=== PATIENT | male | born 1935 | race Caucasian/White ===

== ENCOUNTER 2023-10-11 16:21 | Emergency (ER) | payer OTHER, SELFPAY ==
[2023-10-11 16:49] VITALS: BP 136/76
[2023-10-11 17:50] VITALS: BMI 25.8
--- NOTE | 2023-10-11 18:10 | ED.GENMED ---
History of Present Illness
General
Chief Complaint: Fall
Source: patient and family
Exam Limitations: none
Time Seen by Provider: 10/11/23 17:44
Nursing documentation reviewed up to this point in time: agreed with
Travel History
Have you had any contact with someone who has COVID-19?: No
Do you have any symptoms of coronavirus? Fever > 100 degrees, chills, cough, shortness of breath, sore throat, loss of taste or smell, muscle aches, or headache?: No
History of Present Illness
History of Present Illness:
Pleasant 88-year-old male that presents after a trip and fall that occurred 3 days ago. He tripped and fell on hitting his head. Patient was initially acting normally but son and [id number] state that he became more more disoriented.
Today he had difficulty with activities of daily living so they brought him into the hospital. They were concerned that his head injury was more severe than originally thought. Patient was at baseline mental status at time of H&P.
Past History
Past History
ED Past Medical History: Hypercholesterolemia and Other (Migraines)
ED Past Surgical History: Other (Ear surgery)
Social History
Tobacco: Non-smoker
Alcohol: None
Drug: None
Personal:
Living: alone
Review of Systems
Review of Systems
Allergies reviewed?: Yes
Other source history: family
All Other Systems: ROS reviewed and negative except as documented in HPI and ROS
Constitutional: Reports no symptoms
EENT: Reports no symptoms
Respiratory: Reports no symptoms
Cardiac: Reports no symptoms
ABD/GI: Reports no symptoms
: Reports no symptoms
Musculoskeletal: Reports no symptoms
Skin: Reports no symptoms
Neurological: Reports headache
Endocrine: Reports no symptoms
Hematologic/Lymphatic: Reports no symptoms
Psychiatric: Reports anxiety
Phy Exam
General Physical Exam
General Presentation: well appearing and no apparent distress
General Skin: warm and dry
General Habitus: normal
General Mental: alert
General Hydration: appears well hydrated
ENT Exam
ENT Exam: EOMI, pharynx normal, neck supple and normocephalic
Eye Exam
Eye Exam: PERRL, cornea clear and conjunctiva normal
Cardiovascular Exam
Cardiovascular Exam: regular rate/rhythm, no edema, no murmur and normal peripheral pulses
Pulmonary Exam
Pulmonary Exam: lungs clear, no respiratory distress, no rales, no crackles, no rhonchi, no stridor, no wheezing and no cough
Gastrointestinal Exam
Gastrointestinal Exam: normal bowel sounds, non tender, soft, no organomegaly, no pulsatile mass and non distended
Neurological Exam
Neurological Exam: alert, oriented x3, no motor deficits and speech normal
Musculoskeletal Exam
Musculoskeletal Exam: full ROM and no edema
Skin Exam
Skin Exam: warm/dry and other (Ecchymosis in a diagonal pattern on the right flank. No tenderness to palpation.)
Psychiatric Exam
Psychiatric Exam: normal mood/affect
Course
Orders/Labs/Results
Orders:
Orders
10/11/23 17:08
CT Head W/o Iv Contrast Urgent
Comment: s/p fall
Reason For Exam: head injury with change in mental status
Vital Signs
Initial and Last Documented VS:
Initial Vital Signs
Temp Pulse Resp BP Pulse Ox
98.2 F 75 18 136/76 97
10/11/23 16:49 10/11/23 16:49 10/11/23 16:49 10/11/23 16:49 10/11/23 16:49
Last Documented Vital Signs
Temp Pulse Resp BP Pulse Ox
98.2 F 75 18 136/76 97
10/11/23 16:49 10/11/23 16:49 10/11/23 16:49 10/11/23 16:49 10/11/23 16:49
*Radiology
Radiology exam reviewed: radiology read reviewed (IMPRESSION: No acute intracranial abnormality noted. Moderate atrophy. Stable Severe right nonacute sinusitis. Stable)
*Pulse Oximetry
Patient hypoxic: no
*Critical Care Note
Total Time (30-74mins, 75-104mins- exclusive of procedures): Not Applicable
ED Attending Note
-
Portions of this chart may have been created with voice recognition software.� Occasional wrong word or��sound alike� substitutions may have occurred due to the inherent limitations of voice recognition software.
Discharge Plan
Departure
Patient Disposition: Home (Routine Discharge)
Date of Disposition: 10/11/23
Time of Disposition: 19:44
Patient with high blood pressure during this ER visit?: Yes
Condition: Good
Discharge Problem:
Fall, Contusion, Head injury
Instructions: Head Injury in Adults (DC), Contusion (DC), Preventing falls in adults, BLOOD PRESSURE
Prescriptions:
No Action
latanoprost 0.005 % Drops
1 drp BOTH EYES HS
valproic acid 250 mg Capsule
250 mg PO BID
simvastatin 20 mg Tablet
20 mg PO HS
lisinopril 10 mg Tablet
10 mg PO DAILY
furosemide 20 mg Tablet
10 mg PO DAILY
amoxicillin-pot clavulanate 875-125 mg Tablet
1 tab PO Q12 5 Days Qty: 10 0RF
Referrals:
Chandler Avalos MD [Family Provider] -
Activity Restrictions/Additional Instructions:
It was a pleasure meeting you and taking part in your care. We hope for your continued healing and wellness.
Please read discharge instructions in their entirety. However, they are for general education and may not describe your exact diagnosis at discharge. Information on your ER visit and medical conditions were discussed with you along with appropriate
follow up information...
If indicated, please take your medications as instructed and indicated on discharge paperwork.
Please schedule a follow up appointment as directed. Call to schedule an appointment
Please return to the emergency department with ANY change in, persisting, or worsening of symptoms. If any of your symptoms do not improve, or persist, or become more severe within 6-12 hours, please return to the emergency department for further
care.
Please return to the emergency department if you develop a headache, neck pain/stiffness, fever greater than 100.4F, chest pain, shortness of breath, persistent nausea, vomiting, slurred speech, difficulty walking, numbness/tingling, weakness, signs
of infection or any other symptoms that are worrisome to you.
If you have any questions or concerns please do not hesitate to call the Hospital at or E-mail me directly at [email or web address]
Interventions
Interventions:
*Risk Screen - Suicide Last Done: 10/11/23 17:50
*General Assessment Last Done: 10/11/23 17:50
*Neglect/Abuse Screening Last Done: 10/11/23 17:50
ED- Fall Risk Assessment Last Done: 10/11/23 20:14
*ED COVID-19 Vaccine History Last Done: 10/11/23 16:49
*Nursing Disposition Last Done: 10/11/23 20:14
ED-Musculoskeletal Assessment Last Done: 10/11/23 17:50
ED- Neurological Assessment Last Done: 10/11/23 17:50
ED-Skin Assessment Last Done: 10/11/23 18:35
Discharge Date and Time
Discharge Date/Time: 10/11/23 20:15
== END 2023-10-11 20:15 | disposition home or self-care (01) ==
LOC: EMR 16:21
PROVIDERS: EMERGENCY PHYSICIAN Student in an Organized Health Care Education/Training Program; FAMILY PHYSICIAN Internal Medicine
DX: S09.90XA Unspecified injury of head, initial encounter (principal); S30.1XXA Contusion of abdominal wall, initial encounter; W01.0XXA Fall on same level from slipping, tripping and stumbling without subsequent striking against object, initial encounter; R03.0 Elevated blood-pressure reading, without diagnosis of hypertension
CPT/HCPCS: 99284; 70450

== ENCOUNTER 2023-12-29 13:54 | Emergency (ER) | payer OTHER, SELFPAY ==
[2023-12-29 14:03] VITALS: BP 142/117
--- NOTE | 2023-12-29 14:21 | ED.GENMED ---
History of Present Illness
General
Chief Complaint: Musculo-Skeletal Complaint
Source: patient and ambulance crew
Exam Limitations: none
Time Seen by Provider: 12/29/23 14:06
Nursing documentation reviewed up to this point in time: agreed with
Travel History
Have you had any contact with someone who has COVID-19?: No
Do you have any symptoms of coronavirus? Fever > 100 degrees, chills, cough, shortness of breath, sore throat, loss of taste or smell, muscle aches, or headache?: No
History of Present Illness
History of Present Illness:
88 yo male presents emergency department complaining of intermittent right flank pain since 11 AM. EMS noted he was in atrial fibrillation. He denies any history of it. He also had bilateral edema denying shortness of breath denying chest pain.
He lives alone. He states that he had severe pain, but not at this time.
Past History
Past History
ED Past Medical History: Hypercholesterolemia and Other (Migraines)
ED Past Surgical History: Other (Ear surgery)
Social History
Tobacco: Non-smoker
Alcohol: None
Drug: None
Personal:
Living: alone
Review of Systems
Review of Systems
Allergies reviewed?: Yes
All Other Systems: Not applicable
Constitutional: Reports no symptoms
EENT: Reports no symptoms
Respiratory: Reports no symptoms
Cardiac: Reports no symptoms
ABD/GI: Reports no symptoms
: Reports flank pain
Musculoskeletal: Reports no symptoms
Skin: Reports no symptoms
Neurological: Reports no symptoms
Endocrine: Reports no symptoms
Hematologic/Lymphatic: Reports no symptoms
Psychiatric: Reports no symptoms
Phy Exam
Physical Exam
Physical Exam:
Physical Exam
General: no apparent distress, not acutely ill
Neck: supple. no meningeal signs. normal posterior pharynx
Heart: s1/s2 regular rate and rhythm, no murmur. equal radial
pulses.
HEENT: Pupils equal round reactive to light, EOMI
Lungs: no acute respiratory distress. clear bilaterally
Abdomen: normal bowel sounds. not tender. no CVAT
Neuro: alert and oriented. no focal neurological deficits cranial nerves II through XII intact
Skin: no rash
Psychiatric: well kept. interactive and cooperative
Extremities: no edema. no calf tenderness. negative homans. good distal pulses
Course
Orders/Labs/Results
Orders:
Orders
12/29/23 13:59
EKG [Electrocardiogram (*1)] Urgent
Reason for Study: Atrial Fibrillation
12/29/23 14:00
EKG- Treatment ONCE
12/29/23 14:02
Complete Blood Count/With Diff Urgent
Comprehensive Metabolic Panel Urgent
12/29/23 14:19
CT Abd/pel Without Iv Or Oral Urgent
Comment:
Reason For Exam: right flank pain since 11am
12/29/23 14:20
IV Insert/Care/Rem.- Treatment PRN
12/29/23 15:30
Urinalysis Reflex To Culture Urgent
Date Specimen was Collected: 12/29/23
Time Specimen was Collected: 15:28
Urine Microscopic Reflex Cult Urgent
12/29/23 17:19
Lidocaine [Lidocaine 4% Patch] 1 patch TOPICAL STAT STA
Abnormal Lab Results
12/29/23 12/29/23
14:02 15:30
RBC 4.32 L 10^6/uL
(4.70-6.10)
MCH 32.2 H pg
(27.0-31.0)
Lymphocytes % 17.5 L %
(20.5-51.1)
Carbon Dioxide 32 H mmol/L
(22-30)
Glucose 105 H mg/dl
(70-99)
Total Protein 6.1 L g/dl
(6.3-8.2)
Leukocyte Esterase Rfl Trace A
(Negative)
12/29/23 14:02
12/29/23 14:02
Vital Signs
Initial and Last Documented VS:
Initial Vital Signs
Temp Pulse Resp BP Pulse Ox
98.5 F 66 16 142/117 99
12/29/23 14:03 12/29/23 14:03 12/29/23 14:03 12/29/23 14:03 12/29/23 14:03
Last Documented Vital Signs
Temp Pulse Resp BP Pulse Ox
98.5 F 62 16 148/71 98
12/29/23 14:03 12/29/23 17:15 12/29/23 17:15 12/29/23 17:00 12/29/23 17:15
MDM/Problems Addressed
Differential Diagnosis Includes:
Incarcerated hernia, kidney stone
MDM/Problems Addressed:
88-year-old male with right flank pain, unclear etiology. No inguinal tenderness. No signs of obstruction. Patient improved with Lidoderm patch and observation. Stable for discharge.
Chronic conditions affecting care: HTN
Acute Exacerbation and/or Progression of Chronic Illness: HTN
*Radiology
Radiology exam reviewed: radiology read reviewed (CT abdomen pelvis shows right inguinal hernia, no signs of obstruction)
*Pulse Oximetry
Patient hypoxic: no
*EKG
Interpreted by ED Provider?: Yes
EKG Intrepretation Date: 12/29/23
EKG Intrepretation Time: 14:02
Interpretation: abnormal
Comparison EKG: no changes
Heart Rate: 67
Rate: normal
Rhythm: sinus and sinus arrhythmia
[place]: normal axis
Interval: normal interval
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
Ischemia: no ischemia
*Clerk [employer]ations Interpretation
Rate: normal
Interpretation: normal
Heart Rate: 66
Rhythm: sinus
*Critical Care Note
Total Time (30-74mins, 75-104mins- exclusive of procedures): Not Applicable
Patient Management
Social determinants of health affecting care: Living situation
Escalation/DeEscalation of care consider admission/obs:
Admit not indicated
ED Attending Note
-
Portions of this chart may have been created with voice recognition software.� Occasional wrong word or��sound alike� substitutions may have occurred due to the inherent limitations of voice recognition software.
Discharge Plan
Departure
Patient Disposition: Home (Routine Discharge)
Date of Disposition: 12/29/23
Time of Disposition: 17:17
Patient with high blood pressure during this ER visit?: Yes
Condition: Good
Discharge Problem:
Acute right flank pain
Instructions: Flank Pain ED, BLOOD PRESSURE
Prescriptions:
No Action
latanoprost 0.005 % Drops
1 drp BOTH EYES HS
valproic acid 250 mg Capsule
250 mg PO BID
simvastatin 20 mg Tablet
20 mg PO HS
lisinopril 10 mg Tablet
10 mg PO DAILY
furosemide 20 mg Tablet
10 mg PO DAILY
amoxicillin-pot clavulanate 875-125 mg Tablet
1 tab PO Q12 5 Days Qty: 10 0RF
Referrals:
Chandler Avalos MD [Family Provider] - Call in 1-3 days for appt
Cesar Crouch MD [Active] - Call in 1-3 days for appt
Activity Restrictions/Additional Instructions:
You can apply Lidoderm patch to area for 12 hours and take off for 12 hours for 7 days.
Interventions
Interventions:
*Risk Screen - Suicide Last Done: 12/29/23 14:07
*General Assessment Last Done: 12/29/23 14:07
*Neglect/Abuse Screening Last Done: 12/29/23 14:07
ED- Fall Risk Assessment Last Done: 12/29/23 14:08
*ED COVID-19 Vaccine History Last Done: 12/29/23 14:07
*Nursing Disposition Last Done: 12/29/23 17:35
ED-Musculoskeletal Assessment Last Done: 12/29/23 14:07
Discharge Date and Time
Discharge Date/Time: 12/29/23 18:12
Print Language: INDONESIAN
[2023-12-29 14:23] LABS: % Basophils 0.6 % (0-2); % Eosinophils 1.4 % (0-6); % Immature Granulocytes 0.3 % (0-0.5); % Lymphocytes 17.5 % (20.5-51.1); % Monocytes 6.5 % (1.7-9.3); % Neutrophils 73.7 % (42.2-75.2); Absolute Eosinophils 0.1 10^3/uL (0-0.7); Absolute Lymphocytes 1.2 10^3/uL (1.2-3.4); Absolute Monocytes 0.5 10^3/uL (0.1-0.6); Absolute Neutrophils 5.1 10^3/uL (1.4-6.5); Hematocrit 40.2 % (39.0-52.0); Hemoglobin 13.9 g/dL (13.0-18.0); Mean Corp Hgb Conc. 34.6 g/dL (33.0-37.0); Mean Corpuscular Hgb 32.2 pg (27.0-31.0); Mean Corpuscular Volume 93.1 fL (80.0-94.0); Mean Platelet Volume 9.6 fL (7.4-10.4); Nucleated Red Blood Cells % 0 % (-); Platelet Count 183 10^3/uL (130-400); Red Blood Cell Count 4.32 10^6/uL (4.70-6.10); White Blood Cell Count 6.9 10^3/uL (4.8-10.8)
[2023-12-29 15:12] LABS: ALT (SGPT) 14 U/L (0-50); AST (SGOT) 17 U/L (17-59); Albumin 3.6 g/dl (3.5-5.0); Alkaline Phosphatase 82 U/L (38-126); Blood Urea Nitrogen 17 mg/dl (9-20); Calcium 9.2 mg/dl (8.4-10.2); Carbon Dioxide 32 mmol/L (22-30); Chloride 103 mmol/L (98-107); Glucose 105 mg/dl (70-99); Sodium 136 mmol/L (135-145); Total Bilirubin 0.9 mg/dl (0.2-1.3); Total Protein 6.1 g/dl (6.3-8.2); eGFR > 60.00
[2023-12-29 15:31] VITALS: BP 140/72
[2023-12-29 15:35] LABS: Urine Albumin Negative (Neg - Trace); Urine Bilirubin Negative (Negative); Urine Character Clear (Clear); Urine Color Yellow; Urine Glucose Negative (Negative); Urine Ketone Negative (Negative); Urine Leukocyte Trace (Negative); Urine Nitrite Negative (Negative); Urine Occult Blood Negative (Negative); Urine Specific Gravity 1.015 (<1.030); Urine Urobilinogen Negative (Neg - 1+)
[2023-12-29 15:48] LABS: Urine Red Blood Cell None Seen /HPF (0-2); Urine Squamous Cell 0-2 /LPF (Few)
[2023-12-29 16:00] VITALS: BP 160/81
[2023-12-29 17:00] VITALS: BP 148/71
[2023-12-29] MEDS: LIDOCAINE 4% PATCH 1 PATCH TOPICAL (17:25)
== END 2023-12-29 18:12 | disposition home or self-care (01) ==
LOC: EMR 13:54
PROVIDERS: Emergency Medicine; EMERGENCY PHYSICIAN Emergency Medicine; FAMILY PHYSICIAN Internal Medicine
DX: R10.9 Unspecified abdominal pain (principal); R60.9 Edema, unspecified; I10 Essential (primary) hypertension
CPT/HCPCS: 99285; 74176; 80053; 81003; 81015; 85025; 93005